=== PATIENT | female | born 1935 | race Caucasian/White ===

== ENCOUNTER 2019-05-27 19:09 | Inpatient (IN) | payer MEDICARE, BC ==
[2019-05-27 19:50] LABS: Hemoglobin 10.5 g/dL (12.0-16.0); Mean Corpuscular Hemoglobin 28.3 pg (27.0-31.0); Mean Corpuscular Volume 85.8 fL (78.0-98.0); Mean Platelet Volume 7.9 fL (7.4-10.4); Platelet Count 325 thou/uL (130-400); RBC Distribution Width 13.7 % (11.5-14.5); White Blood Cell (WBC) Count 20.2 thou/uL (4.8-10.8)
[2019-05-27 19:59] LABS: Bacteria/HPF 4+ HPF (None Seen); Bilirubin Negative (Negative); Blood, Urine Trace (Negative); Clarity Turbid (Clear); Glucose, Urine (Dipstick) Normal (Negative); Leukocyte 500 Leu/uL (Negative); Nitrite Negative (Negative); Protein, Urine (Dipstick) 20 mg/dL (Neg-Trace); RBC/HPF 0-3 HPF (0-3); Squamous Epithelial 0-3 HPF (0-3); Urobilinogen Normal mg/dL (Less than 2); WBC/HPF 21-50 HPF (0-3)
[2019-05-27 20:05] LABS: ALT (SGPT) 41 U/L (8-55); AST (SGOT) 43 U/L (5-34); Albumin 3.2 g/dL (3.4-4.8); Alkaline Phosphatase 68 U/L (40-110); Anion Gap 16 mmol/L (10-20); BUN (Urea Nitrogen) 43 mg/dL (9.8-20.1); Bilirubin, Total 0.7 mg/dL (0.2-1.2); Calc. Creatinine Clearance 0 mL/min (70-130); Calcium 8.7 mg/dL (7.8-10.44); Carbon Dioxide 20 mmol/L (23-31); Chloride 101 mmol/L (98-107); Estimated GFR-MDRD 23; Globulin 3.3 g/dL (2.4-3.5); Glucose 104 mg/dL (83-110); Potassium 4.9 mmol/L (3.5-5.1); Protein, Total 6.5 g/dL (6.0-8.3); Sodium 132 mmol/L (136-145)
[2019-05-27 20:11] LABS: Band 12 % (5-11); Lymphocytes 15 % (21-51); MDiff Complete? YES; Monocytes 6 % (0-10); Neutrophil 65 % (42-75); Platelet Morphology Comment Appears Adequate; Polychromasia SLIGHT = 2-3 cells (100X) (0-2/hpf); Reactive Lymphocytes 2 % (0-10)
[2019-05-27] MEDS ORDERED: Cyclobenzaprine 10 MG TAB ONE (20:17)
[2019-05-27] MEDS ORDERED: Sodium Chloride 0.9% 100 ML ONE (20:17)
[2019-05-27] MEDS ORDERED: cefTRIAXone\\ROCEPHIN 2 GM VIAL ONE (20:17)
--- NOTE | 2019-05-27 20:27 | RAD ---
PORTABLE CHEST ONE VIEW: Date: 05-27-2019 Time: 7:43 p.m. History: Malaise. Possible UTI. FINDINGS/IMPRESSION: Comparison made with exam of 09-07-2013. The hear is enlarged. The aorta is tortuous. No lobar consolidation, pneumothoraces, laura pulmonary edema or large effusions are seen. POS: OFF
[2019-05-28 05:04] VITALS: BMI 30.7
[2019-05-28] MEDS ORDERED: Acetaminophen 325 MG TAB PO PRN (10:13)
[2019-05-28 11:29] LABS: Troponin I Less than 0.010 ng/mL (< 0.028)
[2019-05-28 14:43] LABS: Troponin I 0.022 ng/mL (< 0.028)
[2019-05-28] MEDS: Sodium Chloride 0.9% 500 ML IV SCH ×2 (17:20→21:10)
--- NOTE | 2019-05-28 18:28 | ULT ---
RENAL ULTRASOUND: 05/28/19 HISTORY: Acute renal insufficiency. Real time imaging of the right and left kidneys were performed. There is cortical thinning of both ki dneys. The right kidney measures 9.3 and the left kidney 8.3 cm in size. No cyst, mass or obstruction . The patient voided shortly before the exam. The bladder is incompletely distended. IMPRESSION: Mild increased echogenicity of the cortex of both kidneys and cortical thinning. No obstruction or ma ss. POS: ZOHAIB
[2019-05-28 18:44] LABS: Troponin I Less than 0.010 ng/mL (< 0.028)
--- NOTE | 2019-05-28 19:31 | HP ---
CHIEF COMPLAINT: Generalized weakness and shortness of breath. HISTORY OF PRESENT ILLNESS: The patient is a very pleasant 84-year-old female with a history of hypertension and atrial fibrillation, who presents to the hospital with complaints of generalized weakness and shortness of breath going on for the past month, however, worsening for the past week. The patient's daughters are very involved in the patient's care and state that for the past couple of weeks, they have been noticing a significant decline to the point that she is not really getting up and walking around very much. The patient does have significant dementia; however, she is able to do activities of her daily living. The patient's daughter stated that she had her lab work that was done at home, found to have elevated white cells and at this time, they were directed to the ER for further evaluation. PAST MEDICAL HISTORY: She has a history of atrial fibrillation, currently rate controlled; hyperlipidemia, and hypertension. PAST SURGICAL HISTORY: She has had a hysterectomy. SOCIAL HISTORY: She denies any alcohol use, drug use, or smoking history. She is a DNAR. I did discuss this with the patient's two daughters. REVIEW OF SYSTEMS: All negative except for the ones mentioned above in the HPI. FAMILY HISTORY: No history of heart disease or stroke. ALLERGIES: SHE IS ALLERGIC TO SULFA. MEDICATIONS: She is on: 1. Amlodipine, which has been discontinued by the primary care. 2. Xarelto 20 mg daily,. 3. Namenda 10 mg daily,. 4. A whole bunch of vitamins. PHYSICAL EXAMINATION: VITAL SIGNS: Temperature of 98.8, 98% on room air, pulse 90, blood pressure 124/67. GENERAL: She is awake, alert, and oriented x3. Does not appear in any distress. CV: S1 and S2 present. No murmurs, rubs, or gallops. LUNGS: Clear to auscultation. No rhonchi or wheezes noted. ABDOMEN: Soft and nontender. Bowel sounds are present x2. EXTREMITIES: No edema. Pedal pulses are present x2. NEUROVASCULAR: No focal deficits noted. SKIN: No cuts, lesions, or bruises noted. LABORATORY RESULTS: WBCs of 20.2, hemoglobin of 10.5, hematocrit of 31.7, bands of 12. Chemistry; sodium of 132, potassium of 4.9, BUN of 43, creatinine of 2.04. Her BNP was 161. Her troponins were negative. She did have a urinalysis, which indicated possible urinary tract infection. She also had a chest x-ray, which did not show any acute abnormalities. It just indicated the heart is enlarged and the aorta is torturous. ASSESSMENT AND PLAN: The patient is a very pleasant 84-year-old female, who presents to the hospital with generalized weakness. 1. Sepsis, most likely secondary to possible urinary tract infection. We will send the urine for culture. We will start her on antibiotics and continue to monitor. 2. Atrial fibrillation, currently rate controlled. We will continue her home medications. 3. Acute kidney injury. We will get a renal ultrasound. We will encourage her to take oral fluids and we will continue to monitor and we will go ahead and restart her Xarelto also. 4. Leukocytosis, most likely secondary to problem #1. 5. Deep vein thrombosis prophylaxis. The patient is already on Xarelto. Job ID: [id number]
[2019-05-28] MEDS: cefTRIAXone\\ROCEPHIN 1 GM in Sodium Chloride 0.9% 100 ML IVPB SCH (20:58)
[2019-05-29 05:15] LABS: #Basophils 0.1 thou/uL (0.0-0.2); #Eosinphils 0.6 thou/uL (0.0-0.7); #Monocytes 0.8 thou/uL (0.11-0.59); #Neutrophils 5.2 thou/uL (1.40-6.50); %Basophils 1.1 % (0.0-1.0); %Eosinophils 7.4 % (0.0-10.0); %Monocytes 9.1 % (0.0-10.0); %Neutrophils 59.4 % (42.0-75.0); Hemoglobin 10.2 g/dL (12.0-16.0); Mean Corpuscular HGB CONC 32.8 g/dL (32.0-36.0); Mean Corpuscular Hemoglobin 28.6 pg (27.0-31.0); Mean Corpuscular Volume 87.2 fL (78.0-98.0); Mean Platelet Volume 7.6 fL (7.4-10.4); Platelet Count 345 thou/uL (130-400); RBC Distribution Width 13.5 % (11.5-14.5); Red Blood Cell (RBC) Count 3.58 mill/uL (4.20-5.40); White Blood Cell (WBC) Count 8.7 thou/uL (4.8-10.8)
[2019-05-29 05:23] LABS: Anion Gap 13 mmol/L (10-20); BUN (Urea Nitrogen) 35 mg/dL (9.8-20.1); Calc. Creatinine Clearance 36 mL/min (70-130); Calcium 8.9 mg/dL (7.8-10.44); Carbon Dioxide 23 mmol/L (23-31); Chloride 105 mmol/L (98-107); Estimated GFR-MDRD 37; Glucose 91 mg/dL (83-110); Potassium 4.4 mmol/L (3.5-5.1); Sodium 137 mmol/L (136-145)
[2019-05-29] MEDS ORDERED: Rivaroxaban 15 MG TAB PO SCH (17:00)
[2019-05-29] MEDS: cefTRIAXone\\ROCEPHIN 1 GM in Sodium Chloride 0.9% 100 ML IVPB SCH (20:14)
[2019-05-29] MEDS ORDERED: Melatonin 3 MG TAB PO PRN (20:27)
[2019-05-30 09:09] VITALS: TEMP 97.3
[2019-05-30 09:27] VITALS: BP 134/63
--- NOTE | 2019-05-30 09:36 | PDOC.HOSPP ---
- Subjective Encounter Date: 05/29/19 Encounter Time: 10:30 Subjective: pt up in bed feels well - Objective Vital Signs & Weight: Vital Signs (12 hours) Temp Pulse Resp BP BP Pulse Ox 05/30/19 09:26 85 134/63 05/30/19 08:46 97.3 F L 74 18 173/79 H 99 Weight Weight 168 lb 3.2 oz I&O: 05/29/19 05/30/19 05/31/19 06:59 06:59 06:59 Intake Total 1850 2280 Output Total 485 Balance 1365 2280 Result Diagrams: 05/29/19 04:32 05/29/19 04:32 Hospitalist ROS - Review of Systems Cardiovascular: denies: chest pain, palpitations, orthopnea, paroxysmal noc. dyspnea, edema, light headedness, other Gastrointestinal: denies: nausea, vomiting, abdominal pain, diarrhea, constipation, melena, hematochezia, other Genitourinary: denies: dysuria, frequency, incontinence, hematuria, retention, other - Medication Medications: Active Medications Generic Name Dose Route Start Last Admin Trade Name Freq PRN Reason Stop Dose Admin Cholecalciferol 1,000 units 05/29/19 09:00 05/30/19 08:27 Vitamin D3 PO 1,000 units DAILY SABRINA Administration Ceftriaxone Sodium 1 gm/ 100 mls @ 200 mls/hr 05/28/19 20:00 05/29/19 20:14 Sodium Chloride IVPB 100 mls Q24HR SABRINA Administration Melatonin 3 mg 05/29/19 20:27 05/29/19 22:40 Melatonin PO 3 mg HS PRN Administration Insomnia Memantine 10 mg 05/28/19 21:00 05/30/19 08:27 Namenda PO 10 mg BID SABRINA Administration Rivaroxaban 15 mg 05/29/19 17:00 05/29/19 16:54 Xarelto PO 15 mg 1700 SABRINA Administration - Exam Neck: negative: supple, symmetric, no JVD, no thyromegaly, no lymphadenopathy, no carotid bruit, JVD Heart: negative: RRR, no murmur, no gallops, no rubs, normal peripheral pulses, irregular, diminshed peripheral pulses, murmur present, II/IV, III/IV Respiratory: negative: CTAB, no wheezes, no rales, no ronchi, normal chest expansion, no tachypnea, normal percussion, rales, rhonchi, tachypneic, wheezes Gastrointestinal: negative: soft, non-tender, non-distended, normal bowel sounds , no palpable masses, no hepatomegaly, no splenomegaly, no bruit, no guarding, no rigidity, tender to palpation, distended, diminished bowl sounds, voluntary guarding Hosp A/P (1) UTI (urinary tract infection) Status: Acute (2) Atrial fibrillation Code(s): I48.91 - UNSPECIFIED ATRIAL FIBRILLATION Status: Acute (3) HTN (hypertension) Code(s): I10 - ESSENTIAL (PRIMARY) HYPERTENSION Status: Acute - Plan pt feels well no complains. will continue abx. will continue meds.
--- NOTE | 2019-05-30 20:02 | DIS ---
DATE OF ADMISSION: 05/27/2019 DATE OF DISCHARGE: 05/30/2019 DISCHARGE DIAGNOSIS: 1. Sepsis secondary to urinary tract infection. 2. Urinary tract infection. 3. Acute kidney injury on chronic kidney disease. 4. Leukocytosis, resolved. 5. Atrial fibrillation, rate controlled and on anticoagulation. 6. Hypertension. HOSPITAL COURSE: The patient is a very pleasant [id number] who is well taken care at home, she also has a history of dementia, who presents to the hospital with generalized weakness and was found to have leukocytosis. Her urine culture indicated E coli. She was treated initially with IV antibiotics, which was switched to oral. She continued to improve and per family, she was back to her baseline. She has significant dementia and her family felt that she was at baseline. Her acute kidney injury resolved without any intervention. She was initially on losartan, which was held. I have continued her losartan. I recommended her to follow up with her primary and to follow up with labs also. Also, she was on Xarelto 20 mg a day; however, given her clearance, I decreased the dose to 15 mg daily and this was mentioned to the patient's family. The patient does have home health as an outpatient, she will resume that. She did have a renal ultrasound done while she was in the hospital, which indicated mild increase in echogenicity of the cortex of both kidneys and cortical thinning. No obstruction or mass was noted. Her white count normalized to 8.7 on discharge, H and H were stable, and also her creatinine was back to her baseline. Her troponins x3 were negative. Her BNP was mildly elevated. HOME MEDICATIONS: Will be as of the followin. Cefdinir 300 mg twice a day. 2. Xarelto 15 mg daily. 3. Losartan 100 mg daily. 4. Memantine 10 mg b.i.d. 5. Tylenol. 6. Vitamin D3. PHYSICAL EXAMINATION: VITAL SIGNS: Temperature 98.8, pulse 74, respirations 18, 99% on room air, blood pressure 134/63. GENERAL: She is awake, alert, and oriented to self and family. CV: S1 and S2 present. No murmurs, rubs, or gallops. LUNGS: Clear to auscultation. No rhonchi or wheezes noted. ABDOMEN: Soft, nontender. Again, she will be discharged home. She will follow up with her primary. Job ID: [id number]
[2019-05-31] MEDS ORDERED: Losartan 25 MG TAB PO SCH (09:00)
[2019-05-31] MEDS ORDERED: Non-Formulary Item 1 EACH (Losartan Potassium [Cozaar] 100 MG) PO SCH (09:00)
--- NOTE | 2019-06-07 09:57 | PQF ---
LANE BEAN KARISHMA [id number] CLINICAL DOCUMENTATION CLARIFICATION FORM: POST DISCHARGE Addendum to original discharge summary date: ____ Late entry note date: __ DATE: 05/30/2019 ATTN : AKASH HAILE Please exercise your independent, professional judgment in responding to the clarification form. Clinical indicators are provided on the bottom of this form for your review Please check appropriate box(s): [ x ] Urinary tract infection due to E coli [ ] Urinary tract infection not due to E coli [ ] Other diagnosis [ ] Unable to determine For continuity of documentation, please document condition throughout progress notes and discharge summary. Thank You. CLINICAL INDICATORS - SIGNS / SYMPTOMS / LABS Sepsis secondary to Urinary tract infection -Documented in Discharge summary on 05/30 by Akash Haile MD Her urine culture indicated E coli-Documented in Discharge summary on 05/30 by Akash Haile MD Generalized weakness -Documented in Discharge summary on 05/30 by Akash Haile MD Urine culture -Final -Escherichia Coli-Documented in Microbiology RISK FACTORS Her urine culture indicated E coli-Documented in Discharge summary on 05/30 by Akash Haile MD TREATMENT: She was treated initially with IV antibiotics, which was switched to oral - Documented in Discharge summary on 05/30 by Akash Haile MD SAP General Inspector [employer] Winform Viewer (This form is maintained as a part of the permanent medical record) 2014 [employer]. All Rights Reserved [email or web address]
== END 2019-05-30 12:05 | disposition home or self-care (01) | DRG 872 ==
LOC: ERS 19:09 → ONC 21:25
PROVIDERS: ADMIT Emergency Medicine; ATTEND Internal Medicine
DX: A41.51 Sepsis due to Escherichia coli [E. coli] (principal); N39.0 Urinary tract infection, site not specified; N17.9 Acute kidney failure, unspecified; I48.91 Unspecified atrial fibrillation; R26.9 Unspecified abnormalities of gait and mobility; E78.5 Hyperlipidemia, unspecified; Z88.2 Allergy status to sulfonamides; I12.9 Hypertensive chronic kidney disease with stage 1 through stage 4 chronic kidney disease, or unspecified chronic kidney disease; N18.9 Chronic kidney disease, unspecified; F03.90 Unspecified dementia, unspecified severity, without behavioral disturbance, psychotic disturbance, mood disturbance, and anxiety; Z66 Do not resuscitate
CPT/HCPCS: 36415; 36416; 51701; 71045; 76770; 80048; 81001; 81015; 83605; 83880; 84484; 85025; 87040; 87077; 87086; 87186; 87804; 96365; A4353; J0696; J3490

== ENCOUNTER 2019-09-30 09:03 | Inpatient (IN) | payer MEDICARE, BC ==
[2019-09-30 09:32] LABS: #Lymphocytes 0.8 thou/uL (1.20-3.40); #Monocytes 0.9 thou/uL (0.11-0.59); #Neutrophils 16.3 thou/uL (1.40-6.50); %Eosinophils 0.1 % (0.0-10.0); %Lymphocytes 4.2 % (21.0-51.0); %Monocytes 5.2 % (0.0-10.0); %Neutrophils 90.5 % (42.0-75.0); Hemoglobin 16.6 g/dL (12.0-16.0); Mean Corpuscular HGB CONC 32.1 g/dL (32.0-36.0); Mean Corpuscular Hemoglobin 27.7 pg (27.0-31.0); Mean Corpuscular Volume 86.5 fL (78.0-98.0); Mean Platelet Volume 7.5 fL (7.4-10.4); Platelet Count 271 thou/uL (130-400); RBC Distribution Width 13.4 % (11.5-14.5); Red Blood Cell (RBC) Count 5.98 mill/uL (4.20-5.40)
--- NOTE | 2019-09-30 09:39 | CT ---
CT Brain WO Con: 09/30/2019 9:12 AM CLINICAL HISTORY: Level 1 stroke protocol; last seen normal at 2100 arteries with left arm weakness a nd unequal fixation of the eyes. IMAGING TECHNIQUE: Multiple CT images were obtained of the brain without IV contrast. COMPARISON: CT the brain without contrast dated September 29, 2014 FINDINGS: BRAIN: Evidence of infarct: There is a large intraparenchymal hemorrhage involving the right frontal and ri ght parietal region measuring 10.2 x 6.5 cm. Evidence of cranial hemorrhage: The large intraparenchymal hemorrhage does extend into the lateral v entricles, third ventricle and fourth ventricle. Evidence of midline shift: There is severe right to left midline shift of 2.1 cm. Ventricles: There is trapping of the posterior horn and temporal horn of the left lateral ventricle with severe hydrocephalus within the segments. There is transependymal migration of CSF within the left parietal, left occipital left temporal region. SKULL: Intact. VISUALIZED PARANASAL SINUSES: Mild mucosal thickening in the ethmoid air cells. MASTOID AIR CELLS: Clear. EXTRACRANIAL SOFT TISSUES: Normal. IMPRESSION: Large intraparenchymal hemorrhage of the right frontal and parietal region with intraventricular hemo rrhagic extension and prominent right to left midline shift 2.1 cm. There is trapping of the posterior horn and temporal horn of the left lateral ventricle with severe hydrocephalus within the s egments. Findings were called to Dr. Andrews at 9:34 AM on September 30, 2019.
[2019-09-30] MEDS ORDERED: Labetalol HCl 100 MG/20 ML VIAL IVPB SCH (09:49)
[2019-09-30 09:50] LABS: Acetaminophen Less than 6.0 mcg/mL (10.0-30.0); Alcohol Less than 10 mg/dL (Less than 10); Salicylate Less than 8.0 mg/dL (15.0-30.0)
[2019-09-30 09:51] LABS: ALT (SGPT) 22 U/L (8-55); AST (SGOT) 27 U/L (5-34); Albumin 4.4 g/dL (3.4-4.8); Alkaline Phosphatase 81 U/L (40-110); Anion Gap 19 mmol/L (10-20); BUN (Urea Nitrogen) 28 mg/dL (9.8-20.1); Calc. Creatinine Clearance 0 mL/min (70-130); Calcium 9.5 mg/dL (7.8-10.44); Carbon Dioxide 22 mmol/L (23-31); Chloride 101 mmol/L (98-107); Estimated GFR-MDRD 31; Globulin 2.9 g/dL (2.4-3.5); Glucose 273 mg/dL (83-110); Lipase 50 U/L (8-78); Potassium 3.9 mmol/L (3.5-5.1); Protein, Total 7.3 g/dL (6.0-8.3); Sodium 138 mmol/L (136-145)
[2019-09-30] MEDS ORDERED: Mannitol 12.5 GM/50 ML IV SCH (09:56)
[2019-09-30] MEDS ORDERED: manNITOL 20% 0 ML ONE (10:09)
[2019-09-30] MEDS ORDERED: Labetalol HCl 100 MG/20 ML VIAL ONE (10:09)
[2019-09-30 10:13] LABS: CKMB 3.4 ng/mL (0-6.6)
[2019-09-30 10:34] LABS: Bilirubin Negative (Negative); Blood, Urine 1+ (Negative); Clarity Turbid (Clear); Glucose, Urine (Dipstick) 500 mg/dL (Negative); Leukocyte 75 Leu/uL (Negative); Nitrite Negative (Negative); Protein, Urine (Dipstick) 20 mg/dL (Neg-Trace); Squamous Epithelial None Seen HPF (0-3); Urobilinogen Normal mg/dL (Less than 2)
[2019-09-30 10:42] LABS: Amphetamine Not Detected (NotDetected); Barbiturates Screen Not Detected (NotDetected); Benzodiazepine Screen Not Detected (NotDetected); Cocaine Metabolite Screen Not Detected (NotDetected); Medtox Control Line Valid? VALID (VALID); Medtox Reader # READER 4; Methadone Not Detected (NotDetected); Methamphetamine Not Detected (NotDetected); Opiate Screen Not Detected (NotDetected); Oxycodone Screen Not Detected (NotDetected); Phencyclidine (PCP) Not Detected (NotDetected); THC/Cannabinoid Screen Not Detected (NotDetected); Tricyclic Screen Not Detected (NotDetected)
[2019-09-30 10:59] LABS: Bacteria/HPF 1+ HPF (None Seen)
[2019-09-30] MEDS ORDERED: Mannitol 12.5 GM/50 ML ONE (11:05)
[2019-09-30] MEDS ORDERED: hydrALAZINE 20 MG/ML VIAL ONE (12:31)
[2019-09-30 14:08] VITALS: BMI 33.7
[2019-09-30] MEDS ORDERED: hydrALAZINE 20 MG/ML VIAL SLOW IVP PRN (14:30)
[2019-09-30] MEDS ORDERED: Morphine 4 MG/ML VIAL SLOW IVP PRN (15:25)
[2019-09-30] MEDS ORDERED: Lorazepam 2 MG/ML VIAL SLOW IVP PRN (15:25)
[2019-09-30] MEDS ORDERED: diphenhydrAMINE 50 MG/ML VIAL IVP PRN (15:25)
[2019-09-30] MEDS ORDERED: Ondansetron PF 4 MG/2 ML Vial IVP PRN (15:25)
[2019-09-30 16:21] VITALS: BP 151/78; TEMP 98.7
--- NOTE | 2019-09-30 19:53 | HP ---
PRIMARY CARE PROVIDER: Chiquis Nolasco. CHIEF COMPLAINT: Unresponsive. HISTORY OF PRESENT ILLNESS: This is an 84-year-old female, who presents to [facility] Emergency Department in transfer via EMS after the patient's daughters discovered her mother unresponsive in bed this morning. The patient was last seen normal approximately 9:00 p.m. on 09/29/2019. The daughter states she stays with her mother overnight and had given her bedtime medications and noticed that her mother was having a restless night, talking in her sleep, which she thought she was dreaming. The daughter checked on her mother approximately 1:15 a.m. on 09/30/2019, finding her unresponsive to voice or touch. The patient's daughter noted her mother with labored breathing and had some episodes of emesis x4. The patient had been seen normal on the day previous using a wheelchair or rolling walker for mobilization, as well as interacting normally with her daughters. The patient does have a history of Alzheimer's dementia with some memory difficulties, but the daughter states overall she has been doing fairly well at home. In the emergency room, the patient underwent general evaluation including CT imaging of the brain showing a large intracranial hemorrhage with midline shift of over 2 cm. The patient received mannitol 1.5 g IV piggyback in addition to hydralazine and labetalol. The patient was noted with severe hypertension with systolics in the 180s to 190s and diastolics in the 110s. The patient remained unresponsive with agonal breathing in the emergency room. PAST MEDICAL HISTORY: 1. Alzheimer's dementia. 2. Chronic atrial fibrillation, on chronic anticoagulation with Xarelto. 3. Hypertension. 4. History of urinary tract infection with sepsis. 5. Dyslipidemia. 6. Hypertension. PAST SURGICAL HISTORY: 1. Status post hysterectomy. 2. Status post cholecystectomy. 3. Status post breast biopsy without evidence of malignancy. 4. Status post colonoscopy showing sigmoid diverticulosis. CURRENT MEDICATIONS: 1. Multivitamin 1 tablet p.o. daily. 2. Vitamin D3 of 1000 units p.o. daily. 3. Cozaar 100 mg p.o. daily. 4. Namenda 10 mg p.o. b.i.d. 5. Xarelto 15 mg p.o. at bedtime. ALLERGIES: TO SULFA. FAMILY HISTORY: Positive for colon cancer. Mother of metastatic colon cancer at age 88. Sister with a history of breast cancer. SOCIAL HISTORY: Resides in [place], [place]. Accompanied by two daughters, who live with the patient. No alcohol, tobacco, or illicit drug use. Ambulates with a rolling walker or wheelchair. REVIEW OF SYSTEMS: Unobtainable due to patient's unresponsiveness and encephalopathy status post CVA. PHYSICAL EXAMINATION: VITAL SIGNS: Blood pressure 126/70, pulse 72, respiratory rate 25, temperature 98.3 degrees Fahrenheit, O2 saturation 100% on non-rebreather mask. GENERAL APPEARANCE: This is an 84-year-old female, obtunded with agonal respirations on non-rebreather mask. HEENT: Pupils minimally responsive to light and accommodation. Extraocular muscles noted. No scleral icterus. Nares patent. OP is clear. Oral mucosa dry. NECK: Supple. No cervical adenopathy. No thyromegaly. No carotid bruits. No JVD appreciated. Cervical spine with full active and passive range of motion. No meningeal signs noted. CHEST: Coarse breath sounds in the bases bilaterally. Accessory muscle use with agonal respirations. CARDIOVASCULAR: S1, S2 with irregular rate and rhythm. ABDOMEN: Rounded, soft, nontender, and nondistended. Bowel sounds are positive in all 4 quadrants. There is no hepatosplenomegaly. No abdominal bruits. No rebound or guarding appreciated. EXTREMITIES: Warm and dry with fair turgor. No clubbing, cyanosis, or asymmetric edema appreciated. Pulses palpable distally at the dorsalis pedis, posterior tibial, and popliteal arteries bilaterally. Capillary refill less than 2 seconds. NEUROLOGIC: Unresponsive to voice or tactile stimulation. Unresponsive to noxious stimuli. Agonal respirations. GCS of 3. PERTINENT LABORATORY AND X-RAY FINDINGS: Sodium 138, potassium 3.9, chloride 101, CO2 of 22, BUN 28, creatinine 1.59, estimated GFR 31, glucose 273, calcium 9.5. LFTs within normal limits. Serum ammonia level 24. Troponin I 0.047. CBC showed a white blood cell count of 18.0, hemoglobin 16.6, hematocrit 52, platelet count 271 with 91% neutrophils. Urinalysis positive for glucose, ketones, and 1+ blood. She had 1+ blood and leukocyte esterase. Urine drug screen dated 09/30/2019, negative. Plasma alcohol level less than 10. CT of the brain without contrast dated 09/30/2019 shows large intraparenchymal hemorrhage of the right frontal/parietal region with intraventricular hemorrhagic extension with [id number] midline shift of 2.1 cm. Severe hydrocephalus noted. EKG dated 09/30/2019 by my interpretation shows atrial fibrillation with heart rates in the 80s. Normal R-wave progression noted in the precordial leads. Normal axis. No acute ST-T wave changes appreciated. ASSESSMENT AND PLAN: 1. Acute intracranial hemorrhage. The patient will be admitted to the stroke unit. Suspect spontaneous hemorrhage in the context of chronic anticoagulation with Xarelto. Discussed clinical condition with the daughters at the patient's bedside. Current clinical presentation consistent with terminal event. We will consult hospice services for evaluation and comfort care. Family in agreement for comfort measures. 2. Hypertensive emergency. Continue hydralazine 20 mg IV q.4 hours p.r.n. systolic blood pressure greater than or equal to 170. 3. Acute metabolic encephalopathy secondary to #1. Suspect this is a terminal event with clinical improvement unlikely. Continue supportive management. Transition to hospice care. 4. Chronic kidney disease, stage 3. Continue supportive management. No IV fluids given patient's hypertensive urgency and intracranial hemorrhage. 5. Chronic anticoagulation with Xarelto. Hold all anticoagulation and aspirin due to severe intracranial hemorrhage. 6. Prophylaxis. SCDs while in bed. Oxygen as needed to maintain O2 saturations greater than or equal to 88%. 7. Code status. Do not attempt resuscitation confirmed with the patient's daughter and medical power of energy attorney. Job ID: [id number]
--- NOTE | 2019-09-30 21:55 | CON ---
DATE OF CONSULTATION: Ms. Escoto is an 84-year-old woman who presented to the emergency department unresponsive after being found by her daughters at home with agonal breathing and no motor function. She did have some spontaneous slight movements in the right upper and right lower extremities, but certainly not in the left. If anything she does sounds to be exhibitive of posturing. The patient's medical history positive for Alzheimer's dementia with memory difficulties, but the family felt that the patient has been doing mostly well. As recent as yesterday was seen interacting with family positively. Last seen normal was last night around 9:00 p.m. on 09/29/2019. Neurosurgery was consulted for CT scan revealing extraordinarily sized hemorrhage to the right frontal, temporal, and parietal lobes with severe [id number] midline shift measuring roughly 2 cm with near total effacement of the right lateral ventricle across its entire but very thin. There are signs of hydrocephalus to the left lateral ventricle with also some blood within that space. The midbrain is compressed as well as the rostral aruna. There are signs of certainly elevated ICP given the again extraordinary size of hemorrhage. The patient was discussed with the ER doctor before my examination at bedside with recommendations for palliative comfort care and nonsurgical intervention could certainly provide mannitol as a means for medical treatment alone, though again this likely represents internal hemorrhage. On my presentation at bedside, the patient is breathing though more like gas with a non-rebreather mask on. She has no motor function or response in any extremity. I discussed with daughters at bedside, but again the recommendation was for nonsurgical intervention given the size and terminal nature. Daughters are understanding and have accepted that unfortunately her mother is likely going to pass is the result of this bleed. Again Neurosurgery's recommendation plan will be for palliative care consultation and likely hospice admission and measures to keep the patient as comfortable as possible. Job ID: [id number]
--- NOTE | 2019-10-01 08:47 | DIS ---
DATE OF ADMISSION: 09/30/2019 DATE OF DISCHARGE: 09/30/2019 summary DATE OF EXPIRATION: 09/30/2019. FINAL DIAGNOSES: 1. Acute intracranial hemorrhage with severe cerebral edema and hydrocephalus. 2. Hypertensive emergency. 3. Acute metabolic encephalopathy secondary to #1. 4. Chronic kidney disease, stage 3. 5. Chronic anticoagulation with Xarelto. 6. Chronic atrial fibrillation. 7. Alzheimer dementia. CONSULTATIONS: 1. Neurosurgical Service. 2. Hospice Service. PERTINENT LABORATORY AND X-RAY FINDINGS: Creatinine 1.59, estimated GFR 31. Serum ammonia level 24. Troponin I 0.047. CBC showed a white blood cell count of 18.0, hemoglobin 16.6, hematocrit 52, and platelet count 271. Urine drug screen negative on 09/30/2019. CT of the brain without contrast dated 09/30/2019, showed large intraparenchymal hemorrhage of the right frontal and parietal regions with intraventricular extension with prominent [id number] midline shift of 2.1 cm. Associated severe hydrocephalus noted. HOSPITAL COURSE: The patient was initially admitted after presenting unresponsive with agonal breathing. The patient underwent initial neuroimaging in the emergency room with CT showing extensive intraparenchymal hemorrhage of the right frontal and parietal regions with midline shift of greater than 2 cm with associated hydrocephalus. The patient was initially treated with IV labetalol and hydralazine and given one dose of mannitol. The patient was evaluated by the Neurosurgical Service without recommendations for surgical intervention due to the severe cerebral edema and extensive intracranial hemorrhage in the context of multiple comorbid conditions and advanced dementia. Discussions with her family are regarded comfort and palliative measures and the patient's family decided to pursue hospice care. The patient transitioned to inpatient hospice and clinically declined, expiring at 2359 hours on 09/30/2019. Decedent and switchboard operator helper services were notified. Job ID: [id number]
== END 2019-09-30 19:01 | disposition hospice, inpatient (51) | DRG 64 ==
LOC: ERS 09:03 → 2SE 11:05
PROVIDERS: ADMIT Family Medicine; ATTEND Family Medicine
DX: I61.1 Nontraumatic intracerebral hemorrhage in hemisphere, cortical (principal); G93.6 Cerebral edema; G93.41 Metabolic encephalopathy; I16.1 Hypertensive emergency; I48.20 Chronic atrial fibrillation, unspecified; G91.9 Hydrocephalus, unspecified; Z66 Do not resuscitate; Z51.5 Encounter for palliative care; G30.9 Alzheimer's disease, unspecified; I61.5 Nontraumatic intracerebral hemorrhage, intraventricular; R40.2322 Coma scale, best motor response, extension, at arrival to emergency department; R40.2112 Coma scale, eyes open, never, at arrival to emergency department; R40.2212 Coma scale, best verbal response, none, at arrival to emergency department; F02.80 Dementia in other diseases classified elsewhere, unspecified severity, without behavioral disturbance, psychotic disturbance, mood disturbance, and anxiety; E78.5 Hyperlipidemia, unspecified; I12.9 Hypertensive chronic kidney disease with stage 1 through stage 4 chronic kidney disease, or unspecified chronic kidney disease; N18.3 Chronic kidney disease, stage 3 (moderate); Z79.01 Long term (current) use of anticoagulants; Z87.440 Personal history of urinary (tract) infections; Z90.79 Acquired absence of other genital organ(s); Z90.710 Acquired absence of both cervix and uterus; Z79.899 Other long term (current) drug therapy; Z88.2 Allergy status to sulfonamides
CPT/HCPCS: 36415; 36416; 70450; 80053; 80306; 80307; 81003; 81015; 82140; 82553; 83690; 84484; 85025; 93005; 94760; J0360; J1610; J2150; J7799

== ENCOUNTER 2019-09-30 19:07 | Inpatient (IN) | payer OTHER ==
[2019-09-30] MEDS ORDERED: Hyoscyamine Sulfate SL 0.125 mg Tablet SL PRN (19:57)
[2019-09-30] MEDS ORDERED: Scopolamine 1.5 mg/72 hour Patch TOP PRN (19:57)
[2019-09-30] MEDS ORDERED: chlorproMAZINE HCl 25 MG in Sodium Chloride 0.9% 50 ML IVPB PRN (19:57)
[2019-09-30] MEDS ORDERED: Ondansetron PF 4 MG/2 ML Vial IVP PRN (19:57)
[2019-09-30] MEDS ORDERED: diphenhydrAMINE 50 MG/ML VIAL IVP PRN (19:57)
[2019-09-30] MEDS ORDERED: Lorazepam 2 MG/ML VIAL SLOW IVP PRN ×2 (19:57)
[2019-09-30] MEDS ORDERED: chlorproMAZINE HCl 50 MG/2 ML AMP IM PRN ×2 (19:57)
[2019-09-30] MEDS ORDERED: Haloperidol Lactate 5 MG/ML VIAL SLOW IVP PRN (19:57)
[2019-09-30] MEDS ORDERED: Morphine 10 MG/0.5 ML ORAL SYRINGE SL PRN (19:57)
[2019-09-30] MEDS ORDERED: Acetaminophen 650 MG Suppository PR PRN (19:57)
[2019-09-30] MEDS ORDERED: Promethazine HCl 25 MG SUPP PR PRN (19:57)
[2019-09-30 20:18] VITALS: BMI 33.7
[2019-09-30 21:55] VITALS: BP 198/97; TEMP 99
== END 2019-09-30 23:59 | disposition expired | DRG 951 ==
LOC: 2SE 19:07 → SURG A 20:42
PROVIDERS: ADMIT Family Medicine; ATTEND Family Medicine
DX: Z51.5 Encounter for palliative care (principal); Z66 Do not resuscitate; I61.1 Nontraumatic intracerebral hemorrhage in hemisphere, cortical; G93.6 Cerebral edema; G93.41 Metabolic encephalopathy; I61.5 Nontraumatic intracerebral hemorrhage, intraventricular; G91.9 Hydrocephalus, unspecified; I48.20 Chronic atrial fibrillation, unspecified; I16.1 Hypertensive emergency; N18.3 Chronic kidney disease, stage 3 (moderate); G30.9 Alzheimer's disease, unspecified; F02.80 Dementia in other diseases classified elsewhere, unspecified severity, without behavioral disturbance, psychotic disturbance, mood disturbance, and anxiety; I12.9 Hypertensive chronic kidney disease with stage 1 through stage 4 chronic kidney disease, or unspecified chronic kidney disease; E78.5 Hyperlipidemia, unspecified; Z90.710 Acquired absence of both cervix and uterus; Z79.01 Long term (current) use of anticoagulants; Z79.899 Other long term (current) drug therapy; Z87.440 Personal history of urinary (tract) infections; Z90.49 Acquired absence of other specified parts of digestive tract; Z88.2 Allergy status to sulfonamides
CPT/HCPCS: J2060